=== PATIENT | female | born 1955 | race Caucasian/White ===

== ENCOUNTER 2022-06-14 18:45 | Emergency (ER) | payer MEDICAID, MEDICARE ==
[~2022-06-14] VITALS: Ht 157.5 cm; Wt 70.3 kg
[2022-06-14 18:48] VITALS: BP_SYST 143
--- NOTE | 2022-06-14 19:02 | NUR ---
Pt brought by , A&Ox4, pt presents to ER with cough,congestion x 3 days, skin pink and warm, cap refill <3,VSS, will cont to monitor.
--- NOTE | 2022-06-14 19:03 | NUR ---
Report given to Matthieu REN
--- NOTE | 2022-06-14 20:09 | NUR ---
COVID/INFLUENZA SWAB COLLECTED AND SENT TO LAB.
[2022-06-14] MEDS ORDERED: GUAI-723 PO (20:39)
[2022-06-14] MEDS ORDERED: BENZ1LOZ73 PO (20:39)
[2022-06-14 20:55] VITALS: BP_SYST 135
--- NOTE | 2022-06-14 20:57 | NUR ---
Patient given written and verbal discharge instructions and verbalizes understanding. ER MD DR DOYLE discussed with patient the results and treatment provided. Patient in stable condition. ID arm band removed. Rx of CEPACOL LOZENGE, MUCINEX given. Patient educated on pain management and to follow up with PMD. Pain Scale 0/10. Opportunity for questions provided and answered. Medication side effect fact sheet provided.
== END 2022-06-14 20:55 | disposition home or self-care (01) ==
LOC: SED 18:45
DX: B34.9 Viral infection, unspecified (principal); R05.9 Cough, unspecified; R09.81 Nasal congestion; R07.9 Chest pain, unspecified; E11.9 Type 2 diabetes mellitus without complications; I10 Essential (primary) hypertension; E78.5 Hyperlipidemia, unspecified; Z79.899 Other long term (current) drug therapy; Z20.822 Contact with and (suspected) exposure to COVID-19
CPT/HCPCS: 36415; 71046-TC; 99284